=== PATIENT | male | born 1960 | race Caucasian/White ===

== ENCOUNTER 2018-03-19 00:58 | Inpatient (IN) | payer MEDICAID ==
[2018-03-19] MEDS ORDERED: NS 1,000 ML IV ONE (01:08)
--- NOTE | 2018-03-19 01:11 | EDPHY ---
H & P Time Seen by Provider: 03/19/18 01:09 HPI/ROS: HPI CHIEF COMPLAINT: Abdominal pain. HISTORY OF PRESENT ILLNESS: 57-year-old male, history of bipolar disorder, PTSD , ventral hernia repair presents emergency room with abdominal pain. Patient states that he ate dinner around 5:00 a.m. This evening, around 6:00 p.m. He developed some mid abdominal pain. It has been constant for the past 7 hr. It is now 1:00 a.m. In the morning he arrives to the emergency room by EMS. Complains of mid abdominal pain. Denies chest pain or shortness of breath. Denies vomiting nausea or diarrhea. Patient was staying at a local detention however for the reason he was not allowed back into the detention tonight. He was sleeping under in over past. Describes the pain as burning mid abdomen. Right around his periumbilical region. Past Medical History: PTSD, bipolar disorder thyroid disease Past Surgical History: Ventral hernia repair Social History: Homeless. Smokes tobacco. Denies illicit drugs or alcohol. Family History: Noncontributory ROS REVIEW OF SYSTEMS: 10 Systems were reviewed and negative with the exception of the elements mentioned in the history of present illness. Exam Constitutional nontoxic. No acute distress triage nursing summary reviewed, vital signs reviewed, awake/alert. Eyes normal conjunctivae and sclera, EOMI, PERRLA. HENT normal inspection, atraumatic, moist mucus membranes, no epistaxis, neck supple/ no meningismus, no raccoon eyes. Respiratory clear to auscultation bilaterally, normal breath sounds, no respiratory distress, no wheezing. Cardiovascular rate normal, regular rhythm, no murmur, no edema, distal pulses normal. Gastrointestinal mild tender palpation periumbilical, no rebound, no guarding, normal bowel sounds, no distension, no pulsatile mass. Genitourinary no CVA tenderness. Musculoskeletal no midline vertebral tenderness, full range of motion, no calf swelling, no tenderness of extremities, no meningismus, good pulses, neurovascularly intact. Skin pink, warm, & dry, no rash, skin atraumatic. Neurologic awake, alert and oriented x 3, AAOx3, moves all 4 extremities equally, motor intact, sensory intact, CN II-XII intact, normal cerebellar, normal vision, normal speech. Psychiatric normal mood/affect. Heme/Lymph/Immune no lymphadenopathy. Differential Diagnosis: Differential diagnosis includes but is not limited to and in no particular order: Bowel obstruction, appendicitis, gallbladder disease, diverticulitis, colitis, enteritis, perforated viscus, gastritis, GERD , esophagitis, urinary tract infection, pyelonephritis, kidney stones Medical Decision Making: Plan for this patient IV establishment IV fluid bolus , basic blood work, lipase, LFTs, CBC CT scan abdomen pelvis with IV contrast to help delineate abdominal pain. He has had a ventral hernia repair rule out SBO. Mild incarcerated hernia, AAA, there is no pulsatile mass on exam. Re-evaluation: CT scan abdomen pelvis with IV contrast shows small bowel obstruction called to me by Dr. Zhang. 2:[address] Up. NG tube ordered. Plan for admission med surgical bed observation for SBO. It is noted the patient is not vomiting. NG tube ordered. CT scan reviewed shows SBO and fluid-filled stomach. KUB reviewed. NG tube in good placement. Source: Patient, EMS Constitutional: Initial Vital Signs Temperature (C) 36.8 C 03/19/18 01:00 Heart Rate 85 03/19/18 01:00 Respiratory Rate 16 03/19/18 01:00 Blood Pressure 136/93 H 03/19/18 01:00 O2 Sat (%) 95 03/19/18 01:00 O2 Delivery Mode Room Air Allergies/Adverse Reactions: codeine [Codeine] Allergy (Mild, Verified 03/19/18 09:22) Itching Home Medications: Medication Instructions Recorded Levothyroxine [Synthroid 112 mcg 112 mcg PO DAILY06 03/19/18 (*)] Naproxen 500 mg PO BID PRN 03/19/18 Simvastatin 40 mg PO HS 03/19/18 Medical Decision Making - Data Points Laboratory Results: Laboratory Results 03/19/18 01:15 03/19/18 01:15 Medications Given: Ketorolac Tromethamine (Toradol) 15 mg IVP Q6HRS [facility] Stop: 03/24/18 05:59 Last Admin: 03/19/18 18:26 Dose: 15 mg Morphine Sulfate (Morphine) 2 - 4 mg IVP Q2HRS PRN PRN Reason: Pain, Breakthrough Stop: 03/29/18 05:48 Last Admin: 03/19/18 08:52 Dose: 2 mg Nicotine (Nicoderm Cq) 21 mg TD DAILY [facility] Stop: 09/15/18 14:44 Last Admin: 03/19/18 15:22 Dose: 21 mg Discontinued Medications Hydromorphone HCl (Dilaudid) 0.5 mg IVP EDNOW ONE Stop: 03/19/18 02:50 Last Admin: 03/19/18 02:53 Dose: 0.5 mg Hydromorphone HCl (Dilaudid) 0.5 mg IVP EDNOW ONE Stop: 03/19/18 02:49 Last Admin: 03/19/18 04:05 Dose: 0.5 mg Sodium Chloride (Ns) 1,000 mls @ 0 mls/hr IV EDNOW ONE; Wide Open PRN Reason: Protocol Stop: 03/19/18 01:09 Last Admin: 03/19/18 01:24 Dose: 1,000 mls Ondansetron HCl (Zofran) 4 mg IVP EDNOW ONE Stop: 03/19/18 02:50 Last Admin: 03/19/18 02:53 Dose: 4 mg Departure - Departure Disposition: [facility] Inpatient Acute Clinical Impression: SBO (small bowel obstruction) Abdominal pain Qualifiers: Abdominal location: generalized Qualified Code(s): R10.84 - Generalized abdominal pain Condition: Fair
[2018-03-19 01:22] LABS: PLATELET COUNT 168 10^3/uL (150-400)
[2018-03-19] MEDS ORDERED: IOPAMIDOL (ISOVUE 370) 100 ML BTL IV ONE (01:36)
[2018-03-19] MEDS ORDERED: HYDROmorphONE/DILAUDID 1 MG/ML INJ ONE (02:46)
[2018-03-19] MEDS ORDERED: HYDROmorphONE/DILAUDID 2 MG/ML INJ IVP ONE ×2 (02:48→02:49)
[2018-03-19] MEDS ORDERED: ONDANSETRON 4 MG/2 ML VIAL IVP ONE (02:49)
[2018-03-19] MEDS ORDERED: ONDANSETRON 4 MG/2 ML VIAL IVP PRN (05:49)
[2018-03-19] MEDS: KETOROLAC 15 MG/1 ML SDV IVP SCH ×4 (06:00→23:47)
--- NOTE | 2018-03-19 08:08 | PDGENHP ---
History and Physical - Chief Complaint Abdominal pain - History of Present Illness Deonte Jin is a 57-year-old gentleman with a known history of bipolar disorder, coronary disease and hypothyroidism who presents with acute onset of abdominal pain. The patient had eaten dinner earlier on the evening of arrival and thought summary hip put something in his food. He was at a alf and decided to leave. He progressively got more distended with more mid epigastric and periumbilical abdominal pain. Elected to come to the emergency room. Previous surgeries include appendectomy, 2 ventral incisional hernia repairs and bilateral inguinal hernia repairs last abdominal procedure [address] Dr. Arvizu. The patient had a normal bowel movement 2 days ago denies sick contacts. No previous episodes of this problem. History Information - Allergies/Home Medication List Allergies/Adverse Reactions: codeine [Codeine] Allergy (Mild, Verified 03/19/18 01:18) Itching I have personally reviewed and updated: medical history, social history, surgical history - Surgical History Reports: appendectomy, hernia repair (Ventral x2 and bilateral inguinal) Additional surgical history: Knee surgery - Family History Positive for: non-pertinent - Social History Smoking Status: Current every day smoker Drug Use: None Review of Systems Review of Systems: ROS: 10pt was reviewed & negative except for what was stated in HPI & below Cardiac: Reports: no symptoms Respiratory: Reports: no symptoms Gastrointestinal: Reports: vomitting, abdominal pain, abdominal distention Neurological: Reports: depressed, emotional problems Hematologic/Lymphatic: Denies: easy bleeding Physical Exam Physical Exam: Alert oriented to person place and time Mild distress due to NG-tube Clear to auscultation bilaterally Regular rate and rhythm S1-S2 no murmurs Abdomen soft. distended. nontender. Well-healed surgical scars. No hepatosplenomegaly. No masses. No CVA tenderness Extremities without edema. 2+ over 2+ pulses centrally and peripherally Skin normal turgor and tone Normal affect and appropriate behavior Temp Pulse Resp BP Pulse Ox 36.6 C 94 18 154/98 H 93 03/19/18 04:39 03/19/18 04:39 03/19/18 04:39 03/19/18 04:39 03/19/18 04:39 O2 (L/minute) 4 Lab Data & Imaging Review 03/19/18 01:15 03/19/18 01:15 WBC 8.76 10^3/uL (3.80-9.50) 03/19/18 01:15 RBC 5.17 10^6/uL (4.40-6.38) 03/19/18 01:15 Hgb 16.0 g/dL (13.7-17.5) 03/19/18 01:15 Hct 45.4 % (40.0-51.0) 03/19/18 01:15 MCV 87.8 fL (81.5-99.8) 03/19/18 01:15 MCH 30.9 pg (27.9-34.1) 03/19/18 01:15 MCHC 35.2 g/dL (32.4-36.7) 03/19/18 01:15 RDW 12.5 % (11.5-15.2) 03/19/18 01:15 Plt Count 168 10^3/uL (150-400) 03/19/18 01:15 MPV 10.5 fL (8.7-11.7) 03/19/18 01:15 Neut % (Auto) 70.3 % (39.3-74.2) 03/19/18 01:15 Lymph % (Auto) 22.0 % (15.0-45.0) 03/19/18 01:15 [place] % (Auto) 5.5 % (4.5-13.0) 03/19/18 01:15 Eos % (Auto) 1.7 % (0.6-7.6) 03/19/18 01:15 Baso % (Auto) 0.3 % (0.3-1.7) 03/19/18 01:15 Nucleat RBC Rel Count 0.0 % (0.0-0.2) 03/19/18 01:15 Absolute Neuts (auto) 6.15 10^3/uL (1.70-6.50) 03/19/18 01:15 Absolute Lymphs (auto) 1.93 10^3/uL (1.00-3.00) 03/19/18 01:15 Absolute Monos (auto) 0.48 10^3/uL (0.30-0.80) 03/19/18 01:15 Absolute Eos (auto) 0.15 10^3/uL (0.03-0.40) 03/19/18 01:15 Absolute Basos (auto) 0.03 10^3/uL (0.02-0.10) 03/19/18 01:15 Absolute Nucleated RBC 0.00 10^3/uL (0-0.01) 03/19/18 01:15 Immature Gran % 0.2 % (0.0-1.1) 03/19/18 01:15 Immature Gran # 0.02 10^3/uL (0.00-0.10) 03/19/18 01:15 Sodium 140 mEq/L (135-145) 03/19/18 01:15 Potassium 3.9 mEq/L (3.5-5.2) 03/19/18 01:15 Chloride 106 mEq/L (97-110) 03/19/18 01:15 Carbon Dioxide 24 mEq/l (22-31) 03/19/18 01:15 Anion Gap 10 mEq/L (6-14) 03/19/18 01:15 BUN 23 mg/dL (7-23) 03/19/18 01:15 Creatinine 0.8 mg/dL (0.7-1.3) 03/19/18 01:15 Estimated GFR > 60 03/19/18 01:15 Glucose 116 mg/dL (70-100) H 03/19/18 01:15 Calcium 9.5 mg/dL (8.5-10.4) 03/19/18 01:15 Total Bilirubin 0.5 mg/dL (0.1-1.4) 03/19/18 01:15 Conjugated Bilirubin 0.4 mg/dL (0.0-0.5) 03/19/18 01:15 Unconjugated Bilirubin 0.1 mg/dL (0.0-1.1) 03/19/18 01:15 AST 21 IU/L (17-59) 03/19/18 01:15 ALT 39 IU/L (21-72) 03/19/18 01:15 Alkaline Phosphatase 69 IU/L (38-126) 03/19/18 01:15 Total Protein 6.5 g/dL (6.3-8.2) 03/19/18 01:15 Albumin 4.1 g/dL (3.5-5.0) 03/19/18 01:15 Lipase 58 IU/L (23-300) 03/19/18 01:15 Imaging Review: Personally reviewed imaging results on PACS. Dilated loops of bowel to the distal ileum with a small amount of free intra-abdominal fluid. Previous clips from both appendectomy and hernia repairs are noted. There is no free air. There is gas and stool in his colon. This is more consistent with a partial small-bowel obstruction in a closed loop obstruction. Reviewed these with the patient as well. Post NG tube placement films are reviewed with tube in good position Assessment & Plan Assessment: Abdominal pain (Acute) SBO (small bowel obstruction) (Acute) Bipolar disorder Hypercholesterolemia Hypothyroidism Plan: Admit for observation. Will likely need more than 24 hr hospital stay. Continue NG tube to low wall suction. Encourage ambulation. May have clear liquids with the NG tube in place. Will restart medications once confirmed by pharmacy. If he has no improvement in bowel function within 24 hr of nasogastric tube suctioning small-bowel follow-through or Gastrografin and CT scan after 4 hr will be performed.
--- NOTE | 2018-03-19 12:15 | ASMTCMCOM ---
CM Note CM Note Notes: Pt is a 57 y/o man admitted for abdominal pain and a SBO. Pt has a hx of bipolar. Pt may be homeless and was staying at the halfway prior to coming into the hospital. CM available for halfway reservation. Date Signed: 03/19/2018 12:15 PM Electronically Signed By:HAILEE Kelsey
[2018-03-19] MEDS: NICOTINE 21 MG/24 HR PATCH TD SCH (15:22)
[2018-03-20] MEDS: KETOROLAC 15 MG/1 ML SDV IVP SCH ×4 (06:17→23:25)
[2018-03-20] MEDS: NICOTINE 21 MG/24 HR PATCH TD SCH (08:39)
--- NOTE | 2018-03-20 11:00 | PDMN ---
Medical Necessity Medical necessity: [facility] [place] M210 Intestinal Obstruction, 2 days: 57 yo w/ abd pain, dx w/ acute small bowel obstruction, treat medically for now w/ NG tube, inpatient status.
[2018-03-21] MEDS: KETOROLAC 15 MG/1 ML SDV IVP SCH ×2 (05:20→12:35)
--- NOTE | 2018-03-21 09:45 | SOAPPROG ---
SOAP Progress Note Assessment/Plan: Assessment/Plan: Partial SBO being managed with conservative measures. Reviewed KUB films yesterday with patient and his sister. 4.5L NG output overnight, but intake has been just below 4L. Will trial NG tube clamp and advancing diet this am. Discussed returning NG to suction if unable to tolerate food. Patient seen and evaluated with Dr. Up. 03/21/18 12:10 Subjective: No overnight concerns. Mild epigastric pain, improved over past few days. Having flatus, no BM. No nausea. No urinary complaints. No chest pain or shortness of breath. Objective: Vital Signs Temp Pulse Resp BP Pulse Ox 37.1 C 88 16 108/71 85 L 03/21/18 08:00 03/21/18 08:00 03/21/18 08:00 03/21/18 08:00 03/21/18 08:00 03/20/18 03/21/18 03/22/18 05:59 05:59 05:59 Intake Total 1000 3780 Output Total 2325 5000 Balance -1325 -1220 Physical Exam: Gen: A&O x3, appears comfortable, afebrile HEENT: anicteric, NG tube in place left nare- 4L dark red output overnight Skin: normal CV: regular rate Abdomen: soft, distended, mild epigastric tenderness. No rebound or guarding. Extremities: unremarkable ICD10 Worksheet Patient Problems: Problems Problem Status Onset Abdominal pain Acute SBO (small bowel obstruction) Acute
[2018-03-21] MEDS: NICOTINE 21 MG/24 HR PATCH TD SCH (10:09)
[2018-03-21 11:41] VITALS: BP 108/72
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
--- NOTE | 2018-03-21 15:40 | ASMTCMCOM ---
CM Note CM Note Notes: Met with pt, already has a bed at the residential. CM called Medicaid transport for ride to residential, no other needs. DC Plan: Custodial Date Signed: 03/21/2018 03:39 PM Electronically Signed By:Mishel Rice RN
--- NOTE | 2018-03-21 16:50 | PDDCSUM ---
Discharge Summary Discharge Summary: Date of admission: 03/19/2018 Date of discharge: 03/21/2018 Principal diagnosis partial small-bowel obstruction Imaging studies CT scan of the abdomen and pelvis, abdominal x-ray showing resolution after 24 hr of decompression with nasogastric tube. This is a 57-year-old gentleman with a history of prior bilateral inguinal hernia repairs, appendectomy and ventral hernia repairs. The patient has had a 1st on obstruction starting on the day of arrival. He had eaten food at a nursing home and afterwards began having epigastric and lower abdominal pain. The patient presented to the hospital for evaluation. He was found have partial small-bowel obstruction. Nasogastric tube decompression was performed for 24 hr and repeat x-ray was performed. Although the patient began having bowel movements another 24 hr of decompression allowed complete resolution of his pain and regaining of bowel activity and function. He was started on a regular diet and discharged without any additional medications. Past medical history is significant for hypertension, hyperlipidemia, hypothyroidism and bipolar disorder. No new surgical history is identified on this admission. Allergy: Codeine Medications to Continue on Transfer Levothyroxine [Synthroid 112 mcg (*)] 112 mcg PO DAILY06 03/19/18 [Last Taken ] Naproxen 500 mg PO BID PRN 03/19/18 [Last Taken Unknown] Simvastatin 40 mg PO HS 03/19/18 [Last Taken 03/18/18] No complications stay Follow-up with primary care physician pfercho. Follow up with General surgery in 2 weeks if needed.
== END 2018-03-21 14:45 | disposition home or self-care (01) | DRG 247 ==
LOC: EDUNIT# → F3E 04:35 → OBSVTOIN 05:51
PROVIDERS: ADMIT Surgery; ATTEND Surgery
DX: K56.600 Partial intestinal obstruction, unspecified as to cause (principal); I25.10 Atherosclerotic heart disease of native coronary artery without angina pectoris; E78.5 Hyperlipidemia, unspecified; E03.9 Hypothyroidism, unspecified; F31.9 Bipolar disorder, unspecified; F43.10 Post-traumatic stress disorder, unspecified; Z59.0 Homelessness; F17.210 Nicotine dependence, cigarettes, uncomplicated
CPT/HCPCS: 96374; J1170; J1885; J2270; J2405; Q9967